=== PATIENT | male | born 1985 | race American Indian/Alaskan Native ===

== ENCOUNTER → 2022-08-14 | Emergency (ER) | payer SELFPAY ==
[~2022-08-14] MED LIST: HALOPERIDOL LACTATE 5 MG/1 ML INJ IM PRN; LORazepam 2 MG/ML VIAL IM PRN; MELATONIN 5 MG TAB PO SCH; SERTRALINE 50 MG TAB PO SCH
--- NOTE | 2022-08-14 03:05 | Emergency Department Report ---
HPI - General Chief Complaint: Psych Time Seen by Provider: 08/14/22 02:54 - HPI HPI: Room 12 The patient is a 37-year-old male presenting with a chief complaint of suicidal ideation. Patient states she is felt suicidal for months. Patient denies any active attempts at harming himself. When asked that the patient had a plan to harm himself he shakes his head yes but when asked for details the patient does not respond intelligibly. Patient admits to crack use stating he last used today ED Past Medical Hx - Past Medical History Previous Medical History?: Yes Hx Psychiatric Treatment: Yes (BIPOLAR, SCHIZOPHRENIA) - Surgical History Past Surgical History?: No - Family History Family history: no significant - Social History Smoking Status: Current Every Day Smoker (1/3 pack/day) Substance Use Type: Alcohol (Occasional), Cocaine ED Review of Systems ROS: Stated complaint: MENTAL HEALTH CONCERNS Other details as noted in HPI Constitutional: no symptoms reported Eyes: denies: eye pain ENT: denies: throat pain Respiratory: no symptoms reported Cardiovascular: denies: chest pain Endocrine: no symptoms reported Gastrointestinal: denies: abdominal pain Genitourinary: denies: urgency Musculoskeletal: denies: back pain Psychiatric: suicidal thoughts Physical Exam - Physical Exam Vital Signs: Vital Signs 08/14/22 02:34 Temperature 97.8 F Pulse Rate 82 Respiratory 18 Rate Blood Pressure 100/62 O2 Sat by Pulse 100 Oximetry Physical Exam: GENERAL: The patient is well-developed well-nourished male lying in chair not appearing to be in acute distress. [] HEENT: Normocephalic. Atraumatic. Extraocular motions are intact. Patient has moist mucous membranes. NECK: Supple. Trachea midline CHEST/LUNGS: Clear to auscultation. There is no respiratory distress noted. HEART/CARDIOVASCULAR: Regular. There is no tachycardia. There is no gallop rub or murmur. ABDOMEN: Abdomen is soft, nontender. Patient has normal bowel sounds. There is no abdominal distention. SKIN: There is no rash. There is no edema. There is no diaphoresis. NEURO: The patient is asleep but awakens to verbal stimuli. Patient is drowsy and requires frequent reawakening to answer questions.. The patient is cooperative. The patient has no focal neurologic deficits. The patient has normal speech MUSCULOSKELETAL: There is no evidence of acute injury. ED Course Vital Signs 08/14/22 02:34 Temperature 97.8 F Pulse Rate 82 Respiratory 18 Rate Blood Pressure 100/62 O2 Sat by Pulse 100 Oximetry ED Medical Decision Making - Lab Data Result diagrams: 08/14/22 03:05 08/14/22 03:05 - Differential Diagnosis Suicidal ideation Critical care attestation.: If time is entered above; I have spent that time in minutes in the direct care of this critically ill patient, excluding procedure time. ED Disposition Clinical Impression: Suicidal ideation Disposition: [address] [place] [address] Is pt being admited?: No Does the pt Need Aspirin: No Condition: Stable Additional Instructions: Professional and Agency Contacts To help Res[facility] Crises (07/06) [place] Crisis Line: Suicide Prevention Line: Crisis Text Line: Text START to 663699 Emergency: 911 Outpatient COMMUNITY Behavioral Health Resources: [facility]: [facility] [address] [place], [place] [address] [facility] [address] [place] [address] Wednesday thru Wednesday - 8am - 5pm Call to schedule an assessment for mental health and substance abuse programs [facility] Address: [address] [place] [address] Wednesday thru Wednesday- 7am-2pm [facility] Address: [address] [id number] Wednesday thru Wednesday: 8:30AM-5PM Referrals: PRIMARY CAREMD [Primary Care Provider] - 3-5 Days
[2022-08-14 03:42] LABS: Basophils % (Auto) 0.4 % (0.0-1.8); Eosinophils # (Auto) 0.1 K/mm3 (0.0-0.4); Eosinophils % (Auto) 0.6 % (0.0-4.3); Hematocrit 42.2 % (35.5-45.6); Hemoglobin 13.9 gm/dl (11.8-15.2); Lymphocytes # (Auto) 2.2 K/mm3 (1.2-5.4); Lymphocytes % (Auto) 20.3 % (13.4-35.0); Mean Corpuscular HGB Conc 33 % (32-34); Mean Corpuscular Volume 88 fl (84-94); Monocytes # (Auto) 0.8 K/mm3 (0.0-0.8); Monocytes % (Auto) 7.4 % (0.0-7.3); Platelet Count 304 K/mm3 (140-440); Red Blood Count 4.78 M/mm3 (3.65-5.03)
[2022-08-14 03:54] LABS: BUN/Creatinine Ratio 18; Blood Urea Nitrogen 16 mg/dL (9-20); Calcium 9.5 mg/dL (8.4-10.2); Hemolysis Index 10
[2022-08-14 13:09] LABS: Bilirubin,Urine NEG (Negative); Blood,Urine NEG (Negative); Color,Urine Yellow (Yellow); Protein,Urine <15 mg/dL mg/dL (Negative)
[2022-08-14 13:14] LABS: Hyaline Casts,Urine 7 /LPF; Mucus,Urine FEW /HPF; Urobilinogen,Urine < 2 mg/dL (<2.0)
[2022-08-14 13:22] LABS: Benzodiazepines Screen,Urine Negative; Methadone Screen,Urine Negative; Opiate Screen,Urine Negative
--- NOTE | 2022-08-14 13:22 | Event Note ---
Date: 08/14/22 The patient was evaluated in the emergency department for symptoms described in the history of present illness. He/she was evaluated in the context of the global COVID-19 pandemic, which necessitated consideration that the patient might be at risk for infection with the virus that causes COVID-19. Institutional protocols and algorithms that pertain to the evaluation of patients at risk for COVID-19 are in a state of rapid change based on information released by regulatory bodies including the CDC and federal and state organizations. These policies and algorithms were followed during the patient's care in the emergency department. Please note that these policies, procedures and recommendations changed on a rapid basis. Laboratory studies, vital signs, nursing documentation, ER documentation, and psychiatric documentation are reviewed and appreciated. Nursing team reports no acute events this morning or concerns. The patient is awake and ambulating and does not appear to be in any acute distress. The patient was deemed medically suitable for psychiatric disposition and placement during his initial ER evaluation. The patient continues to remain medically suitable for psychiatric placement and disposition. He is currently pending psychiatric placement. COVID swab has been ordered in anticipation of possible placement. As needed medications also ordered.
[2022-08-14 13:45] LABS: Amphetamine Screen,Urine Positive; Cannabinoid Screen,Urine Positive; Cocaine Screen,Urine Positive
--- NOTE | 2022-08-14 15:43 | Consultation ---
History of Present Illness - Reason for Consult Consult date: 08/14/22 Reason for consult: mental health evaluation - Chief Complaint Chief complaint: suicidal ideation - History of Present Psychiatric Illness Patient is a 37 year-old male who reports past psychiatric history of bipolar and schizophrenia who presents to ER with suicidal thoughts and "hearing voices to hurt myself and to do whatever they tell me to do." Patient reports feeling suicidal all month due to "being off meds and sleeping in the peoples." Patient reports previously being treated with zoloft only with good result. Patient reports being homeless the last 3-4 months and was previously living with his mother in [place]. Patient reports leaving [place] to get into a program here and escape a bad home environment. Patient reports use of alcohol and crack cocaine "every other day," with last use last night, meth use last use 3 days ago, and marijuana use last use 2 weeks ago. Patient denies history of seizures. Patient reports visual hallucinations of "the calderón coming together." Patient reports interest in entering rehabilitation program in [place]. Patient reports suicidal ideation at present without plan. Patient denies histo ry of suicide attempts or self-harming. Patient reports okay sleep and requests an additional bag lunch. Patient denies homicidal ideation. PAST PSYCHIATRIC HISTORY: Diagnoses: Bipolar, Schizophrenia Suicide attempts or Self-harm behavior: Denies Prior psychiatric hospitalizations: Denies Substance Abuse history: Crack cocaine, meth, alcohol, marijuana Previous psychiatric medications tried: Zoloft Outpatient treatment: Yes SOCIAL HISTORY Marital Status: Living Arrangements: Homeless Employment Status: Unemployed Access to guns/weapons: Denies Education: 11th grade History of Abuse: Denies Legal History: Denies REVIEW OF SYSTEMS Constitutional: Negative for weight loss ENT: Negative for stridor Respiratory: Negative for cough or hemoptysis All other systems reviewed and are negative MENTAL STATUS EXAMINATION General Appearance and Behavior: Age appropriate, wearing appropriate clothes, cooperative, polite with questioning, poor eye contact Cooperation: cooperative Psychomotor Behavior: Psychomotor normal Mood: depressed Affect and affective range: congruent with stated affect Thought Process: goal-oriented Thought Content: reality-based Speech: Normal volume, Regular rate and rhythm Suicidal Ideation: Yes Homicidal Ideation: Denies Hallucination: Command auditory hallucination, visual hallucinations Delusions: None elicited Impulse Control: Limited Insight and Judgment: Limited Memory: Intact Attention: Attentive Orientation: Alert and oriented ASSESSMENT Schizophrenia Polysubstance abuse TREATMENT 1013 CIWA Restart zoloft 25 mg qd Olanzapine 5 mg qhs Risks, benefits and alternatives of medications discussed with the patient, questions answered and consent obtained from patient: . The patient should be compliant with medications, not to use drugs, and not to drink alcohol. The patient understands that if suicidal ideas, homicidal ideas or any endangering feeling arise, the patient should seek assistance including, but not limited to crisis hotline, and emergency room. PSYCHOTHERAPY: Supportive psychotherapy provided MEDICAL: Per primary team DELIRIUM PRECAUTIONS: Please re-orient patient frequently, keep lights on during the day, and minimize benzodiazepines and opiates as these medications could worsen patient's confusion. BOATWRIGHT: Defer to primary DISPOSITION: Recommend acute inpatient psychiatric hospitalization at this time. FOLLOW-UP: Will follow Thank you for the consult. Please contact with any questions and/or concerns. Case staffed with Dr. Caryl Celeste. Medications and Allergies Allergies Allergy/AdvReac Type Severity Reaction Status Date / Time No Known Allergies Allergy Unverified 08/14/22 02:34 Active Meds: Active Medications Haloperidol Lactate (Haloperidol Lactate 5 Mg/1 Ml Inj) 5 mg IM Q6HR PRN PRN Reason: Agitation Lorazepam (Lorazepam 2 Mg/Ml Vial) 2 mg IM Q4HR PRN PRN Reason: Agitation Mental Status Exam - Vital signs Last Vital Signs Temp 98.9 F 08/14/22 10:05 Pulse 98 H 08/14/22 10:05 Resp 14 08/14/22 10:05 BP 99/53 08/14/22 10:05 Pulse Ox 100 08/14/22 10:05 Results Result Diagrams: 08/14/22 03:05 08/14/22 03:05 Abnormal lab results 08/14/22 08/14/22 08/14/22 Range/Units 03:05 03:05 03:05 Waldo % (Auto) 7.4 H (0.0-7.3) % Seg Neutrophils % 71.3 H (40.0-70.0) % Glucose 107 H (75-100) mg/dL Salicylates < 0.3 L (2.8-20.0) mg/dL Acetaminophen (10.0-30.0) ug/mL 08/14/22 Range/Units 03:05 Waldo % (Auto) (0.0-7.3) % Seg Neutrophils % (40.0-70.0) % Glucose (75-100) mg/dL Salicylates (2.8-20.0) mg/dL Acetaminophen 5.0 L (10.0-30.0) ug/mL All other labs normal.
[2022-08-14 21:06] VITALS: BP 160/60
== END ==
LOC: ED 02:17
DX: R45.851 Suicidal ideations (principal); Z20.822 Contact with and (suspected) exposure to COVID-19; F17.200 Nicotine dependence, unspecified, uncomplicated; F10.20 Alcohol dependence, uncomplicated
CPT/HCPCS: 36415; 80048; 80307; 80320; 81001; 85025; 99285; G0480; U0003